=== PATIENT | female | born 1990 | race American Indian/Alaskan Native ===

== ENCOUNTER 2016-11-04 04:33 | Emergency (ER) | payer SELFPAY ==
[2016-11-04] MEDS ORDERED: PROVENTIL IH ONE ×2 (04:49→08:43)
[2016-11-04 05:14] LABS: Hematocrit 37.5 % (30.3-42.9); Hemoglobin 12.4 gm/dl (10.1-14.3); Mean Corpuscular HGB Conc 33 % (30-34); Mean Corpuscular Hemoglobin 30 pg (28-32); Mean Corpuscular Volume 91 fl (79-97); Platelet Count 301 K/mm3 (140-440); Red Blood Count 4.15 M/mm3 (3.65-5.03); White Blood Count 7.6 K/mm3 (4.5-11.0)
[2016-11-04 05:31] LABS: Anion Gap 17 mmol/L; Blood Urea Nitrogen 10 mg/dL (7-17); Calcium 9.1 mg/dL (8.4-10.2); Carbon Dioxide 24 mmol/L (22-30); Chloride 104.2 mmol/L (98-107); Glucose 94 mg/dL (65-100); Sodium 141 mmol/L (137-145)
[2016-11-04 06:01] LABS: Blastocytes % (Manual) 0 %
[2016-11-04 06:02] LABS: Diff Status Complete; Platelet Estimate Consistent w Auto
--- NOTE | 2016-11-04 08:16 | XRay Report ---
FINAL REPORT EXAM: XRAY CHEST 2 VIEWS HISTORY: SHANNEN for 4 days. Tightness across chest. Nonlabored. Productive cough. MAEW. Skin W\T\D. Expiratory wheezing. Nasal congestion. stated have fever in begining. Hx of pneumonia in Feb TECHNIQUE: PA and lateral chest radiographs PRIORS: None. FINDINGS: No mediastinal shift. Cardiac silhouette is not enlarged. No pneumothorax, effusion, or focal pulmonary opacity. No acute skeletal finding. IMPRESSION: No focal pulmonary opacity.
[2016-11-04 08:21] LABS: Bacteria,Urine 1+ /HPF (Negative); Bilirubin,Urine NEG (Negative); Blood,Urine NEG (Negative); Ketones,Urine 20 mg/dL (Negative); Leukocyte Esterase,Urine NEG (Negative); Mucus,Urine 3+ /HPF; Nitrite,Urine NEG (Negative); Urobilinogen,Urine < 2.0 mg/dL (<2.0)
[2016-11-04] MEDS ORDERED: ATROVENT IH ONE (08:44)
[2016-11-04 10:19] VITALS: BP 121/76
--- NOTE | 2016-11-04 10:43 | Emergency Department Report ---
ED Shortness of Breath HPI - General Chief Complaint: Dyspnea/Respdistress Stated Complaint: COUGH/ SHANNEN Time Seen by Provider: 11/04/16 10:34 Source: patient Mode of arrival: Ambulatory Limitations: No Limitations - History of Present Illness Initial Comments: 26-year-old female was no significant past medical history presented Today With Shortness of Breath and Productive Cough for the Last 3 Weeks Symptoms Started with Runny Nose Cough Congestion and Now She Is Having Shortness of Breath . Patient Stated That She Had Pneumonia Back in February of This Year. She Denied Any Fever No Nausea No Vomiting or Diarrhea. MD Complaint: shortness of breath, cough -: Gradual, week(s) - Related Data Previous Rx's Medication Instructions Recorded Last Taken Type ALBUTEROL Inhaler [ProAir HFA 2 puff IH QID PRN #1 inhalation 11/04/16 Unknown Rx Inhaler] Azithromycin [Zithromax Z-ANYI] 250 mg PO DAILY 1 Days 11/04/16 Unknown Rx P-Ephed HCl/Codeine/Guaifen 10 ml PO Q4H PRN #100 ml 11/04/16 Unknown Rx [Cheratussin DAC 30-10-100 mg/5 ml] Allergies Allergy/AdvReac Type Severity Reaction Status Date / Time amoxicillin Allergy Swelling Verified 11/04/16 04:45 honey Allergy Swelling Verified 11/04/16 04:45 ED Review of Systems ROS: Stated complaint: COUGH/ SHANNEN Other details as noted in HPI Comment: All other systems reviewed and negative Constitutional: denies: chills, fever Respiratory: cough, shortness of breath. denies: orthopnea Cardiovascular: denies: chest pain, palpitations, dyspnea on exertion, orthopnea Gastrointestinal: denies: abdominal pain, nausea, vomiting Skin: denies: rash Neurological: denies: headache, weakness ED Past Medical Hx - Past Medical History Previous Medical History?: No - Surgical History Past Surgical History?: Yes Additional Surgical History: x1. tonsil. 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 - Social History Smoking Status: Current Every Day Smoker Substance Use Type: Alcohol - Medications Home Medications: Home Medications Medication Instructions Recorded Confirmed Last Taken Type ALBUTEROL Inhaler [ProAir HFA 2 puff IH QID PRN #1 inhalation 11/04/16 Unknown Rx Inhaler] Azithromycin [Zithromax Z-ANYI] 250 mg PO DAILY 1 Days 11/04/16 Unknown Rx P-Ephed HCl/Codeine/Guaifen 10 ml PO Q4H PRN #100 ml 11/04/16 Unknown Rx [Cheratussin DAC 30-10-100 mg/5 ml] ED Physical Exam - General Limitations: No Limitations General appearance: alert, in no apparent distress - ENT ENT exam: Present: normal exam, normal orophraynx, mucous membranes moist - Neck Neck exam: Present: normal inspection. Absent: tenderness, meningismus - Respiratory Respiratory exam: Present: normal lung sounds bilaterally, prolonged expiratory. Absent: respiratory distress, wheezes, rales, rhonchi, stridor, chest wall tenderness, accessory muscle use, decreased breath sounds - Cardiovascular Cardiovascular Exam: Present: regular rate, normal rhythm, normal heart sounds - GI/Abdominal GI/Abdominal exam: Present: soft. Absent: distended, tenderness, guarding, rebound, rigid, normal bowel sounds, mass, bruit, pulsatile mass - Extremities Exam Extremities exam: Present: normal inspection - Back Exam Back exam: Present: normal inspection - Neurological Exam Neurological exam: Present: alert, oriented X3, CN II-XII intact - Skin Skin exam: Present: warm, normal color ED Course Vital Signs 11/04/16 11/04/16 11/04/16 05:01 05:13 08:08 Pulse Rate Pulse Rate [ 78 83 Posterior Bilateral] Respiratory Rate Respiratory 18 18 Rate [Posterior Bilateral] Blood Pressure O2 Sat by Pulse 98 Oximetry 11/04/16 11/04/16 11/04/16 08:16 08:30 08:46 Pulse Rate 64 85 61 Pulse Rate [ Posterior Bilateral] Respiratory 18 14 17 Rate Respiratory Rate [Posterior Bilateral] Blood Pressure 112/76 115/81 112/76 O2 Sat by Pulse 98 95 97 Oximetry 11/04/16 11/04/16 11/04/16 08:52 09:00 09:16 Pulse Rate 73 83 Pulse Rate [ 62 Posterior Bilateral] Respiratory 13 19 Rate Respiratory 18 Rate [Posterior Bilateral] Blood Pressure 110/65 115/81 O2 Sat by Pulse 100 100 Oximetry 11/04/16 11/04/16 11/04/16 09:18 09:30 09:46 Pulse Rate 81 76 Pulse Rate [ 66 Posterior Bilateral] Respiratory 21 17 Rate Respiratory 18 Rate [Posterior Bilateral] Blood Pressure 121/61 110/65 O2 Sat by Pulse 99 98 Oximetry 11/04/16 11/04/16 11/04/16 10:00 10:16 10:20 Pulse Rate 73 77 Pulse Rate [ Posterior Bilateral] Respiratory 12 17 18 Rate Respiratory Rate [Posterior Bilateral] Blood Pressure 121/76 121/76 O2 Sat by Pulse 100 98 Oximetry - Reevaluation(s) Reevaluation #1: 11/04/16 10:41 Patient stated that she is feeling much better, she stated her cough is is better and no shortness of breath ,denied any chest pain at this moment 11/04/16 19:21 ED Medical Decision Making - Lab Data Result diagrams: 11/04/16 04:57 11/04/16 04:57 - EKG Data EKG shows normal: sinus rhythm Rate: normal - EKG Data When compared to previous EKG there are: no significant change - Radiology Data Radiology results: report reviewed Chest x-ray was no acute abnormality - Medical Decision Making Patient improving or come back normal chest x-ray with no acute abnormality we' ll discharge patient home to follow his primary care physician Critical care attestation.: If time is entered above; I have spent that time in minutes in the direct care of this critically ill patient, excluding procedure time. ED Disposition Clinical Impression: Shortness of breath, Acute bronchitis Disposition: DC-01 TO HOME OR SELFCARE Is pt being admited?: No Condition: Stable Instructions: Acute Bronchitis (ED) Prescriptions: ALBUTEROL Inhaler [ProAir HFA Inhaler] 2 puff IH QID PRN #1 inhalation PRN Reason: Shortness Of Breath Azithromycin [Zithromax Z-ANYI] 250 mg PO DAILY 1 Days P-Ephed HCl/Codeine/Guaifen [Cheratussin DAC 30-10-100 mg/5 ml] 10 ml PO Q4H PRN #100 ml PRN Reason: Cough Referrals: PRIMARY CARE, [Primary Care Provider] - 3-5 Days
== END 2016-11-04 10:55 | disposition home or self-care (01) ==
LOC: ED 04:33
DX: J20.9 Acute bronchitis, unspecified (principal); R06.02 Shortness of breath; F17.200 Nicotine dependence, unspecified, uncomplicated; Z91.018 Allergy to other foods; Z88.1 Allergy status to other antibiotic agents
CPT/HCPCS: 36415; 71020; 80048; 81001; 81025; 84484; 84703; 85007; 85025; 93005; 93010; 94640

== ENCOUNTER 2019-12-05 14:59 | Emergency (ER) | payer SELFPAY ==
--- NOTE | 2019-12-05 16:03 | Event Note ---
ED Screening Note Date of service: 12/05/19 Time: 16:01 ED Screening Note: c/o chest pain with inhalation x 1 day + cough denies hemoptysis, OCPs, recent long travel, or leg pain/swelling This initial assessment/diagnostic orders/clinical plan/treatment(s) is/are subject to change based on patients health status, clinical progression and re- assessment by fellow clinical providers in the ED. Further treatment and workup at subsequent clinical providers discretion. Patient/guardian urged not to elope from the ED as their condition may be serious if not clinically assessed and managed. Initial orders include: labs CXR ekg
[2019-12-05 16:40] LABS: Basophils # (Auto) 0.1 K/mm3 (0.0-0.1); Basophils % (Auto) 1.1 % (0.0-1.8); Eosinophils # (Auto) 0.5 K/mm3 (0.0-0.4); Eosinophils % (Auto) 7.9 % (0.0-4.3); Hematocrit 35.9 % (30.3-42.9); Hemoglobin 11.5 gm/dl (10.1-14.3); Lymphocytes # (Auto) 2.8 K/mm3 (1.2-5.4); Lymphocytes % (Auto) 48.9 % (13.4-35.0); Mean Corpuscular HGB Conc 32 % (30-34); Mean Corpuscular Volume 86 fl (79-97); Monocytes # (Auto) 0.3 K/mm3 (0.0-0.8); Monocytes % (Auto) 5.3 % (0.0-7.3); Platelet Count 372 K/mm3 (140-440); Red Blood Count 4.18 M/mm3 (3.65-5.03); Red Cell Distribution Width 14.8 % (13.2-15.2)
[2019-12-05 17:03] LABS: Alanine Aminotransferase 8 units/L (7-56); Albumin 3.8 g/dL (3.9-5); Blood Urea Nitrogen 6 mg/dL (7-17); Calcium 8.5 mg/dL (8.4-10.2); Hemolysis Index 8
[2019-12-05 17:05] LABS: BUN/Creatinine Ratio 9
--- NOTE | 2019-12-05 17:29 | XRay Report ---
CHEST 2 VIEWS INDICATION: chest pain, SOB. COMPARISON: 11/04/2016 FINDINGS: Support devices: None. Heart: Within normal limits. Lungs/pleura: No acute air space or interstitial disease. No pneumothorax. Additional findings: None. IMPRESSION: Normal chest x-ray Signer Name: Michael Azevedo Jr, MD Signed: 12/05/2019 5:25 PM Workstation Name: [id number]
[2019-12-05] MEDS ORDERED: KETOROLAC 30 MG/1 ML INJ IV STA (20:40)
--- NOTE | 2019-12-05 20:50 | Emergency Department Report ---
ED General Adult HPI - General Chief complaint: Chest Pain Stated complaint: CHEST PAINS SOB Time Seen by Provider: 12/05/19 17:48 Source: patient Mode of arrival: Ambulatory Limitations: No Limitations - History of Present Illness Initial comments: 29-year-old female that emerge department complaining of a emergence of chest pain sudden emergency chest pain last night which was substernal worse with deep breath palpation and worsens with exertion. States that when she walks she feels sharp pain piercing through her chest associated with occasional lightheadedness. She reports a clear mucus producing cough as well no fevers, chills, sweats. Hemoptysis no hematemesis no hematochezia. No wheezing, no known chest trauma. Location: chest Radiation: non-radiation Quality: sharp, dull Consistency: constant Improves with: none Worsens with: none - Related Data Previous Rx's Medication Instructions Recorded Last Taken Type Albuterol Mdi (or & Nicu Only) 2 puff IH QID PRN #1 inhalation 11/04/16 Unknown Rx [ProAir HFA Inhaler] Azithromycin [Zithromax Z-ANYI] 250 mg PO DAILY 1 Days tab 11/04/16 Unknown Rx Pseudoephed/Codeine/Guaifen 10 ml PO Q4H PRN #100 ml 11/04/16 Unknown Rx [Cheratussin DAC 30-10-100 mg/5 ml] Ketorolac [Toradol] 10 mg PO Q6H PRN #10 tablet 12/05/19 Unknown Rx Allergies Allergy/AdvReac Type Severity Reaction Status Date / Time amoxicillin Allergy Swelling Verified 11/04/16 04:45 honey Allergy Swelling Verified 11/04/16 04:45 ED Review of Systems ROS: Stated complaint: CHEST PAINS SOB Other details as noted in HPI Comment: All other systems reviewed and negative ED Past Medical Hx - Past Medical History Previous Medical History?: No - Surgical History Additional Surgical History: x1. tonsil. 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 - Social History Smoking Status: Current Every Day Smoker - Medications Home Medications: Home Medications Medication Instructions Recorded Confirmed Last Taken Type Albuterol Mdi (or & Nicu Only) 2 puff IH QID PRN #1 inhalation 11/04/16 Unknown Rx [ProAir HFA Inhaler] Azithromycin [Zithromax Z-ANYI] 250 mg PO DAILY 1 Days tab 11/04/16 Unknown Rx Pseudoephed/Codeine/Guaifen 10 ml PO Q4H PRN #100 ml 11/04/16 Unknown Rx [Cheratussin DAC 30-10-100 mg/5 ml] Ketorolac [Toradol] 10 mg PO Q6H PRN #10 tablet 12/05/19 Unknown Rx ED Physical Exam - General Limitations: No Limitations General appearance: alert, in no apparent distress - Head Head exam: Present: atraumatic, normocephalic - Eye Eye exam: Present: normal appearance - ENT ENT exam: Present: normal exam, mucous membranes moist - Neck Neck exam: Present: normal inspection, full ROM - Respiratory Respiratory exam: Present: normal lung sounds bilaterally, chest wall tenderness (Tenderness along the sternal border with palpation. Pain with opposed adduction of all). Absent: respiratory distress, wheezes, rales, accessory muscle use, decreased breath sounds - Cardiovascular Cardiovascular Exam: Present: regular rate, normal rhythm. Absent: systolic murmur, diastolic murmur, rubs, gallop - GI/Abdominal GI/Abdominal exam: Present: soft, normal bowel sounds - Extremities Exam Extremities exam: Present: normal inspection, normal capillary refill - Back Exam Back exam: Present: normal inspection. Absent: CVA tenderness (R), CVA tenderness (L) - Neurological Exam Neurological exam: Present: alert, oriented X3, CN II-XII intact, normal gait - Psychiatric Psychiatric exam: Present: normal affect, normal mood - Skin Skin exam: Present: warm, dry, intact, normal color. Absent: rash ED Course Vital Signs 12/05/19 12/05/19 16:01 21:36 Temperature 98.0 F Pulse Rate 100 H 78 Respiratory 18 14 Rate Blood Pressure 138/94 Blood Pressure 107/66 [Right] O2 Sat by Pulse 100 100 Oximetry - Reevaluation(s) Reevaluation #1: 12/05/19 20:52 Ambulated with pulse ox sats maintaining labs and have a heart rate in crease from 92-1 36 associated with some palpitations and some some discomfort although palpitations pain and symptoms resolved upon resting. The patient did report some degree of anxiety as well to the pain move forward with a CT scan of the chest ED Medical Decision Making - Lab Data Result diagrams: 12/05/19 16:21 12/05/19 16:21 Lab Results 12/05/19 12/05/19 12/05/19 Range/Units 16:21 16:21 16:21 WBC 5.7 (4.5-11.0) K/mm3 RBC 4.18 (3.65-5.03) M/mm3 Hgb 11.5 (10.1-14.3) gm/dl Hct 35.9 (30.3-42.9) % MCV 86 (79-97) fl MCH 28 (28-32) pg MCHC 32 (30-34) % RDW 14.8 (13.2-15.2) % Plt Count 372 (140-440) K/mm3 Lymph % (Auto) 48.9 H (13.4-35.0) % [place] % (Auto) 5.3 (0.0-7.3) % Eos % (Auto) 7.9 H (0.0-4.3) % Baso % (Auto) 1.1 (0.0-1.8) % Lymph # (Auto) 2.8 (1.2-5.4) K/mm3 [place] # (Auto) 0.3 (0.0-0.8) K/mm3 Eos # (Auto) 0.5 H (0.0-0.4) K/mm3 Baso # (Auto) 0.1 (0.0-0.1) K/mm3 Seg Neutrophils % 36.8 L (40.0-70.0) % Seg Neutrophils # 2.1 (1.8-7.7) K/mm3 Sodium 138 (137-145) mmol/L Potassium 4.2 (3.6-5.0) mmol/L Chloride 105.9 (98-107) mmol/L Carbon Dioxide 23 (22-30) mmol/L Anion Gap 13 mmol/L BUN 6 L (7-17) mg/dL Creatinine 0.7 (0.6-1.2) mg/dL Estimated GFR > 60 ml/min BUN/Creatinine Ratio 9 % Glucose 89 (65-100) mg/dL Calcium 8.5 (8.4-10.2) mg/dL Total Bilirubin 0.20 (0.1-1.2) mg/dL AST 12 (5-40) units/L ALT 8 (7-56) units/L Alkaline Phosphatase 54 (35-129) units/L Troponin T < 0.010 (0.00-0.029) ng/mL Total Protein 6.8 (6.3-8.2) g/dL Albumin 3.8 L (3.9-5) g/dL Albumin/Globulin Ratio 1.3 % HCG, Qual (Negative) 12/05/19 Range/Units 16:21 WBC (4.5-11.0) K/mm3 RBC (3.65-5.03) M/mm3 Hgb (10.1-14.3) gm/dl Hct (30.3-42.9) % MCV (79-97) fl MCH (28-32) pg MCHC (30-34) % RDW (13.2-15.2) % Plt Count (140-440) K/mm3 Lymph % (Auto) (13.4-35.0) % [place] % (Auto) (0.0-7.3) % Eos % (Auto) (0.0-4.3) % Baso % (Auto) (0.0-1.8) % Lymph # (Auto) (1.2-5.4) K/mm3 [place] # (Auto) (0.0-0.8) K/mm3 Eos # (Auto) (0.0-0.4) K/mm3 Baso # (Auto) (0.0-0.1) K/mm3 Seg Neutrophils % (40.0-70.0) % Seg Neutrophils # (1.8-7.7) K/mm3 Sodium (137-145) mmol/L Potassium (3.6-5.0) mmol/L Chloride (98-107) mmol/L Carbon Dioxide (22-30) mmol/L Anion Gap mmol/L BUN (7-17) mg/dL Creatinine (0.6-1.2) mg/dL Estimated GFR ml/min BUN/Creatinine Ratio % Glucose (65-100) mg/dL Calcium (8.4-10.2) mg/dL Total Bilirubin (0.1-1.2) mg/dL AST (5-40) units/L ALT (7-56) units/L Alkaline Phosphatase (35-129) units/L Troponin T (0.00-0.029) ng/mL Total Protein (6.3-8.2) g/dL Albumin (3.9-5) g/dL Albumin/Globulin Ratio % HCG, Qual Negative (Negative) - Radiology Data Radiology results: report reviewed [facility] [address] [place] [id number] Cat Scan Report Signed Patient: SINDHU SPICER MR#: [id number] 54 : 1990 Acct:[id number] Age/Sex: 29 / F ADM Date: 12/05/19 Loc: ED Attending Dr: Ordering Physician: VINNIE DUBOSE Date of Service: 12/05/19 Procedure(s): CT angio chest Accession Number(s): [id number] cc: VINNIE DUBOSE CTA CHEST WITH CONTRAST INDICATION / CLINICAL INFORMATION: severe chest pain and exertional dyspnea. TECHNIQUE: Axial CT images were obtained through the chest after injection of IV contrast. 3 plane MIP and/or 3D reconstructions were produced. All CT scans at this location are performed using CT dose reduction for ALARA by means of automated exposure control. COMPARISON: No prior CTA. Prior chest radiograph dated 12/05/2019. FINDINGS: PULMONARY ARTERIES: No pulmonary emboli. THORACIC AORTA: No significant abnormality. HEART: No significant abnormality. CORONARY ARTERIES: No significant calcification. MEDIASTINUM / FANG: Calcite mediastinal and right hilar lymph nodes are noted consistent with prior granulomatous disease. PLEURA: No pleural effusion. No pneumothorax. LUNGS: No acute air space or interstitial disease. ADDITIONAL FINDINGS: None. UPPER ABDOMEN: Cholecystectomy. SKELETAL STRUCTURES: No significant osseous abnormality. IMPRESSION: 1. No CT evidence for pulmonary embolism. 2. No acute findings. Signer Name: Amos Armendariz MD Signed: 12/05/2019 9:49 PM Workstation Name: [id number] Transcribed By: Dictated By: AMOS ARMENDARIZ Electronically Authenticated By: AMOS ARMENDARIZ Signed Date/Time: 12/05/192148 DD/ 45 TD/TT: - Medical Decision Making This patient presents with chest pain that is very unlikely angina or acute coronary syndrome. The emergency department evaluation has not identified any cause for suspicion that this chest pain has a cardiac etiology. Based on their history, EKG (which showed no evidence of ischemia or infarction) and imaging, in addition to the patient's physical exam, I see no evidence at this time for a malignant etiology for the patient's chest pain. There is no acute evidence for pulmonary embolus, acute myocardial infarction, pneumothorax, Boerhaeve syndrome, cardiac tamponade, thoracic artery dissection, or any other emergent cardiac, pulmonary or aortic pathology. Given the low pre-test probability for cardiac etiology of chest pain and the absence of any sign of ischemia or infa rction, discharge for outpatient follow-up and further evaluation is reasonable. I have explained to the patient that even though a cardiac problem is very unlikely, follow-up and further testing is required to reduce further the already small uncertainty that exists. Other life-threatening diagnoses have been considered. The patient understands the need to return immediately if their symptoms worsen or they develop any new symptoms, and not to engage in any significant exertional activity until follow-up is obtained. Critical care attestation.: If time is entered above; I have spent that time in minutes in the direct care of this critically ill patient, excluding procedure time. ED Disposition Clinical Impression: Chest pain Disposition: DC-01 TO HOME OR SELFCARE Is pt being admited?: No Does the pt Need Aspirin: No Condition: Stable Instructions: Chest Pain (ED), Costochondritis (ED) Prescriptions: Ketorolac [Toradol] 10 mg PO Q6H PRN #10 tablet PRN Reason: Pain Referrals: PRIMARY CARE, [Primary Care Provider] - 3-5 Days [facility] [Provider Group] - 3-5 Days
[2019-12-05 21:38] VITALS: BP 107/66
--- NOTE | 2019-12-05 21:54 | Cat Scan Report ---
CTA CHEST WITH CONTRAST INDICATION / CLINICAL INFORMATION: severe chest pain and exertional dyspnea. TECHNIQUE: Axial CT images were obtained through the chest after injection of IV contrast. 3 plane MIP and/or 3D reconstructions were produced. All CT scans at this location are performed using CT dose reduction f or ALARA by means of automated exposure control. COMPARISON: No prior CTA. Prior chest radiograph dated 12/05/2019. FINDINGS: PULMONARY ARTERIES: No pulmonary emboli. THORACIC AORTA: No significant abnormality. HEART: No significant abnormality. CORONARY ARTERIES: No significant calcification. MEDIASTINUM / FANG: Calcite mediastinal and right hilar lymph nodes are noted consistent with prior g ranulomatous disease. PLEURA: No pleural effusion. No pneumothorax. LUNGS: No acute air space or interstitial disease. ADDITIONAL FINDINGS: None. UPPER ABDOMEN: Cholecystectomy. SKELETAL STRUCTURES: No significant osseous abnormality. IMPRESSION: 1. No CT evidence for pulmonary embolism. 2. No acute findings. Signer Name: Amos Grimm MD Signed: 12/05/2019 9:49 PM Workstation Name: [id number]
== END 2019-12-06 00:10 | disposition home or self-care (01) ==
LOC: ED 14:59
DX: R07.89 Other chest pain (principal); R05 Cough; R42 Dizziness and giddiness; F17.200 Nicotine dependence, unspecified, uncomplicated; Z98.890 Other specified postprocedural states; Z90.49 Acquired absence of other specified parts of digestive tract; Z88.1 Allergy status to other antibiotic agents; Z91.018 Allergy to other foods
CPT/HCPCS: 36415; 71046; 71275; 80053; 84484; 84703; 85025; 93005; 96374; 99284; J1885; Q9967